=== PATIENT | male | born 1950 | race Native Hawaiian/Other Pacific Islander ===

== ENCOUNTER 2018-08-06 08:34 | Outpatient (CLI) | payer OTHER ==
[~2018-08-06 08:34] MED LIST: ASPIRIN325 M1 PO; LISI20TA11 PO; METO50TA27 PO
[2018-08-06 09:20] LABS: PLATELET COUNT 273 K/uL (142-355)
[2018-08-06 09:34] LABS: POTASSIUM 4.3 mmol/L (3.6-5.2)
== END 2018-08-06 22:47 | disposition home or self-care (01) ==
LOC: LABW 08:34
PROVIDERS: Internal Medicine
DX: I10 Essential (primary) hypertension (principal); I25.10 Atherosclerotic heart disease of native coronary artery without angina pectoris; E87.1 Hypo-osmolality and hyponatremia; E53.8 Deficiency of other specified B group vitamins
CPT/HCPCS: 36415; 80053; 81000; 82043; 82306; 82330; 82436; 82552; 82570; 82607; 82746; 83735; 83935; 83970; 84100; 84133; 84155; 84300; 84439; 84443; 84550; 85027; 85651; 86038

== ENCOUNTER 2018-12-07 07:27 | Outpatient (CLI) | payer OTHER ==
[2018-12-07 08:02] LABS: PLATELET COUNT 257 K/uL (142-355)
[2018-12-07 08:14] LABS: POTASSIUM 4.2 mmol/L (3.6-5.2)
== END 2018-12-07 19:13 | disposition home or self-care (01) ==
LOC: LABW 07:27
PROVIDERS: Internal Medicine
DX: N18.3 Chronic kidney disease, stage 3 (moderate) (principal)
CPT/HCPCS: 36415; 80053; 81000; 82043; 82570; 83735; 84100; 84155; 85027

== ENCOUNTER 2019-03-16 07:06 | Outpatient (CLI) | payer OTHER ==
[2019-03-16 07:35] LABS: PLATELET COUNT 258 K/uL (142-355)
[2019-03-16 07:46] LABS: POTASSIUM 4.1 mmol/L (3.6-5.2)
== END 2019-03-16 20:03 | disposition home or self-care (01) ==
LOC: LABW 07:06
PROVIDERS: Internal Medicine
DX: N18.2 Chronic kidney disease, stage 2 (mild) (principal); R73.09 Other abnormal glucose
CPT/HCPCS: 36415; 80053; 81000; 82043; 82570; 83036; 83735; 84100; 84155; 85027

== ENCOUNTER 2019-05-11 06:39 | Outpatient (CLI) | payer OTHER ==
[2019-05-11 08:54] LABS: PLATELET COUNT 248 K/uL (142-355)
== END 2019-05-11 21:34 | disposition home or self-care (01) ==
LOC: LABW 06:39
PROVIDERS: Internal Medicine
DX: E87.1 Hypo-osmolality and hyponatremia (principal); E11.22 Type 2 diabetes mellitus with diabetic chronic kidney disease
CPT/HCPCS: 36415; 80053; 81000; 83036; 83930; 83935; 85027

== ENCOUNTER 2019-08-11 07:04 | Outpatient (CLI) | payer OTHER ==
[2019-08-11 07:44] LABS: PLATELET COUNT 260 K/uL (142-355)
== END 2019-08-11 19:36 | disposition home or self-care (01) ==
LOC: LABW 07:04
PROVIDERS: Internal Medicine
DX: E87.1 Hypo-osmolality and hyponatremia (principal); E11.22 Type 2 diabetes mellitus with diabetic chronic kidney disease
CPT/HCPCS: 36415; 80053; 81000; 83036; 83930; 83935; 84439; 84443; 85027

== ENCOUNTER 2021-10-02 13:28 | Outpatient (CLI) | payer OTHER | END 2021-10-02 19:00 | disposition home or self-care (01) | LOC: RAD 13:28 | PROVIDERS: ATTEND Orthopaedic Surgery | DX: M25.511 Pain in right shoulder (principal) ==

== ENCOUNTER 2022-03-04 06:37 | Outpatient (CLI) | payer OTHER ==
[2022-03-04 07:56] LABS: PLATELET COUNT 249 K/uL (142-355)
[2022-03-04 08:14] LABS: POTASSIUM 4.4 mmol/L (3.6-5.2)
== END 2022-03-04 18:57 | disposition home or self-care (01) ==
LOC: LABW 06:37
PROVIDERS: ATTEND Nuclear Medicine Nuclear Cardiology
DX: E87.1 Hypo-osmolality and hyponatremia (principal); E78.49 Other hyperlipidemia; I25.10 Atherosclerotic heart disease of native coronary artery without angina pectoris; I10 Essential (primary) hypertension; Z79.899 Other long term (current) drug therapy
CPT/HCPCS: 80053; 80061; 83036; 83735; 84439; 84443; 85027

== ENCOUNTER 2022-03-26 13:13 | Outpatient (CLI) | payer OTHER | END 2022-03-26 19:22 | disposition home or self-care (01) | LOC: CT 13:13 | PROVIDERS: ATTEND Specialist | DX: R10.9 Unspecified abdominal pain (principal) ==

== ENCOUNTER 2022-04-14 12:48 | Outpatient (CLI) | payer OTHER | END 2022-04-14 19:05 | disposition home or self-care (01) | LOC: US 12:48 | PROVIDERS: ATTEND Dermatology | DX: Z08 Encounter for follow-up examination after completed treatment for malignant neoplasm (principal); Z85.820 Personal history of malignant melanoma of skin ==